=== PATIENT | male | born 1975 ===

== ENCOUNTER 2019-03-05 12:26 | Emergency (ER) | payer SELFPAY ==
[2019-03-05 12:33] VITALS: BP 112/73
[2019-03-05] MEDS ORDERED: NACL 0.9% 500 ML IR ONE (12:47)
[2019-03-05] MEDS ORDERED: NORCO 5/325 PO ONE (13:12)
[2019-03-05] MEDS ORDERED: LEVAQUIN PO ONE (13:12)
[2019-03-05 14:28] LABS: Bacteria,Urine 4+ /HPF (Negative); Bilirubin,Urine NEG (Negative); Blood,Urine MOD (Negative); Color,Urine Amber (Yellow); Urobilinogen,Urine < 2.0 mg/dL (<2.0)
[2019-03-05 14:29] LABS: WBC,Urine > 182.0 /HPF (0.0-6.0)
--- NOTE | 2019-03-05 14:55 | Emergency Department Report ---
ED Male HPI - General Chief complaint: Urogenital-Male Stated complaint: PEARSON CATHETER ISSUE Time Seen by Provider: 03/05/19 13:47 Source: EMS Mode of arrival: Ambulatory Limitations: Language Barrier - History of Present Illness Initial comments: 43-year-old male presents emergency department with a reported Pearson catheter complication. He has. He has a Pearson catheter placed at the base of the penis along on the ventral aspect has been present for about 3-4 months. He reports pressure to his face. His bladder and a nonfunctioning for [place] seeks further evaluation and treatment recommendations. He didn't follow at [place] and has not seen them in over 3 months as well. MD Complaint: dysuria -: Sudden Location: right testicle Radiation: none Severity: mild Quality: burning Consistency: constant Improves with: none Worsens with: none urinary retention. denies: discharge, swelling, blood in urine - Related Data Previous Rx's Medication Instructions Recorded Last Taken Type Ciprofloxacin HCl [Ciprofloxacin 500 mg PO Q12HR #20 tab 03/05/19 Unknown Rx TAB] Phenazopyridine [Pyridium] 200 mg PO TID #10 tab 03/05/19 Unknown Rx Allergies Allergy/AdvReac Type Severity Reaction Status Date / Time No Known Allergies Allergy Verified 03/05/19 12:53 ED Review of Systems ROS: Stated complaint: PEARSON CATHETER ISSUE Other details as noted in HPI Comment: All other systems reviewed and negative ED Past Medical Hx - Past Medical History Hx Diabetes: Yes - Social History Smoking Status: Never Smoker Substance Use Type: None - Medications Home Medications: Home Medications Medication Instructions Recorded Confirmed Last Taken Type Ciprofloxacin HCl [Ciprofloxacin 500 mg PO Q12HR #20 tab 03/05/19 Unknown Rx TAB] Phenazopyridine [Pyridium] 200 mg PO TID #10 tab 03/05/19 Unknown Rx ED Physical Exam - General Limitations: Language Barrier General appearance: alert, in no apparent distress - Head Head exam: Present: atraumatic, normocephalic - Eye Eye exam: Present: normal appearance - ENT ENT exam: Present: mucous membranes moist - Respiratory Respiratory exam: Present: normal lung sounds bilaterally. Absent: respiratory distress - External exam: Present: other (there is significant changes to the groin region due to surgical manipulation. Excoriation to the ventral aspect of the penis that extends down towards the Pearson catheter insertion site. Displaced right testicle to the lower aspect of the right suprapubic region.) - Back Exam Back exam: Present: normal inspection. Absent: CVA tenderness (R), CVA tenderness (L), muscle spasm, paraspinal tenderness, vertebral tenderness - Neurological Exam Neurological exam: Present: alert, CN II-XII intact, normal gait - Psychiatric Psychiatric exam: Present: normal affect, normal mood. 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 4. Catheter was irrigated unsuccessfully and replace with good urine flow afterwards over 700 mL was evacuated from the bladder. Urinalysis does show urinary tract infection as well, with antibiotic-coated advised to follow-up with his urologist for definitive management and further treatment options Critical care attestation.: If time is entered above; I have spent that time in minutes in the direct care of this critically ill patient, excluding procedure time. ED Disposition Clinical Impression: UTI (urinary tract infection), Pearson catheter problem Disposition: TO HOME OR SELFCARE Is pt being admited?: No Does the pt Need Aspirin: No Condition: Stable Instructions: Pearson Catheter Placement and Care (ED), Urinary Tract Infection in Men (ED), Dysuria (ED) Prescriptions: Ciprofloxacin HCl [Ciprofloxacin TAB] 500 mg PO Q12HR #20 tab Phenazopyridine [Pyridium] 200 mg PO TID #10 tab Referrals: [facility] [Provider Group] - 3-5 Days
== END 2019-03-05 15:00 | disposition home or self-care (01) ==
LOC: ED 12:26
DX: N39.0 Urinary tract infection, site not specified (principal); E11.9 Type 2 diabetes mellitus without complications
CPT/HCPCS: 81001